=== PATIENT | female | born 1995 | race Caucasian/White ===

== ENCOUNTER 2020-12-26 09:20 | Emergency (ER) | payer OTHER ==
[~2020-12-26] VITALS: Ht 157.5 cm; Wt 86.4 kg
[2020-12-26 09:29] VITALS: BP 135/100
[2020-12-26] MEDS ORDERED: PNV11TAB5 PO (09:41)
[2020-12-26] MEDS ORDERED: ACETAMINOPHEN 500 MG TABLET PO ONE (11:15)
[2020-12-26] MEDS ORDERED: IBUPROFEN 600 MG TABLET PO ONE (11:15)
[2020-12-26] MEDS ORDERED: MAG HYDROX/AL HYDROX/SIMETH ES 30 ML SUSPENSION UDCUP PO ONE (11:15)
== END 2020-12-26 12:01 | disposition home or self-care (01) ==
LOC: EMS 09:26
DX: O9A.211 Injury, poisoning and certain other consequences of external causes complicating pregnancy, first trimester (principal); S29.012A Strain of muscle and tendon of back wall of thorax, initial encounter; R07.89 Other chest pain; M25.512 Pain in left shoulder; Z3A.13 13 weeks gestation of pregnancy; Z90.89 Acquired absence of other organs; X58.XXXA Exposure to other specified factors, initial encounter; Y93.89 Activity, other specified; Y92.89 Other specified places as the place of occurrence of the external cause; Y99.8 Other external cause status
CPT/HCPCS: 99284; Z7502; Z7610